=== PATIENT | female | born 1985 | race Caucasian/White ===

== ENCOUNTER 2017-10-23 16:08 | Outpatient (CLI) | payer OTHER ==
[2017-10-23 17:00] LABS: BASOPHILS # (AUTO) 0.5 K/uL (0.00-0.22); EOSINOPHILS # (AUTO) 0.1 K/uL (0-0.4); HEMATOCRIT 44.3 % (36-48); HEMOGLOBIN 14.9 g/dL (12.0-16.0); LYMPHOCYTES # (AUTO) 3.5 K/uL (2.5-16.5); MEAN CORPUSCULAR HEMOGLOBIN 32 pg (27-31); MEAN CORPUSCULAR HGB CONC 34 g/dL (33-37); MEAN CORPUSCULAR VOLUME 96 fL (80-94); MONOCYTES # (AUTO) 0.6 K/uL (0.8-1.0); NEUTROPHILS # (AUTO) 5.4 K/uL (1.8-7.7); PLATELET COUNT (AUTO) 311 K/uL (140-450); RED BLOOD CELL COUNT(AUTO) 4.64 MIL/uL (4.20-5.40); RED CELL DISTRIBUTION WIDTH 12.1 % (11.6-13.7); WHITE BLOOD COUNT (AUTO) 10.1 K/uL (4.8-10.8)
[2017-10-23 17:24] LABS: ANION GAP 13.6 (8-16); CARBON DIOXIDE 27.4 mmol/L (21-32); CREATININE 0.8 mg/dL (0.6-1.3); THYROID STIMULATING HORMONE 4.05 uIU/mL (0.34-3.74); TOTAL BILIRUBIN 0.5 mg/dL (0.0-1.0)
== END 2017-10-23 20:19 | disposition home or self-care (01) ==
LOC: MLB 16:08
PROVIDERS: ATTEND Family Medicine
DX: F31.81 Bipolar II disorder (principal)
CPT/HCPCS: 36415; 80053; 80178; 82306; 84443; 85025

== ENCOUNTER 2017-11-26 15:00 | Outpatient (CLI) | payer OTHER | END 2017-11-26 20:59 | disposition home or self-care (01) | LOC: MRD 15:00 | DX: M54.5 Low back pain (principal); M25.552 Pain in left hip | CPT/HCPCS: 72110; 73502 ==

== ENCOUNTER 2017-12-07 11:16 | Emergency (ER) | payer OTHER ==
[~2017-12-07] VITALS: Ht 170.2 cm; Wt 110.2 kg
[2017-12-07 11:20] VITALS: BP 116/81
--- NOTE | 2017-12-07 11:34 | NUR ---
32/F BIB [facility] 8/10,COUGH, CONGESTION WITH FEVER X3 DAYS.HX BIPOLAR, FIBROMYALGIA, INSOMNIA. PT STATES MID CHEST PAIN RADIATES TO UPPER BACK 5/10 WHEN COUGHING. DENIES N/V/D; SKIN IS PINK/WARM/DRY; AAOX4 WITH EVEN AND STEADY GAIT; LUNGS WHEEZING BL HR EVEN AND REGULAR. PATIENT POSITIONED FOR COMFORT; HOB ELEVATED; BEDRAILS UP X2; BED DOWN. ER MD MADE AWARE OF PT STATUS.
--- NOTE | 2017-12-07 11:36 | NUR ---
Dr. Hicks evaluating patient at bedside.
--- NOTE | 2017-12-07 11:48 | NUR ---
XRAY AT BEDSIDE.
--- NOTE | 2017-12-07 12:46 | NUR ---
Dr. Hicks re-evaluating patient at bedside.
[2017-12-07 13:05] VITALS: BP 114/70
--- NOTE | 2017-12-07 13:05 | NUR ---
Patient discharged with v/s stable. Written and verbal after care instructions given and explained. Patient alert, oriented and verbalized understanding of instructions. Ambulatory with steady gait. All questions addressed prior to discharge. ID band removed. Patient advised to follow up with PMD. Rx of CODEINE PHOSPHATE/ PROMETHAZINE HCL& TAMIFLU given. Patient educated on indication of medication including possible reaction and side effects. Opportunity to ask questions provided and answered.
== END 2017-12-07 13:05 | disposition home or self-care (01) ==
LOC: MED 11:16
DX: J06.9 Acute upper respiratory infection, unspecified (principal); M79.7 Fibromyalgia; Z90.89 Acquired absence of other organs
CPT/HCPCS: 71045; 99283; Q0092